=== PATIENT | male | born 1960 | race Caucasian/White ===

== ENCOUNTER 2016-07-26 03:37 | Inpatient (IN) | payer MEDICARE, MEDICAID ==
[2016-07-28] MEDS ORDERED: ZESTRIL DPS10 MG PO (13:50)
[2016-07-28] MEDS ORDERED: ASA CHILDREN'S81 MG PO (13:50)
[2016-07-28] MEDS ORDERED: GLUCOPHAGE-DPS500 MG PO (13:50)
[2016-07-28] MEDS ORDERED: BRILINTA90 MG PO (13:51)
[2016-07-28] MEDS ORDERED: LOPRESSOR DPS50 MG PO (13:51)
[2016-07-28] MEDS ORDERED: LIPITOR DPS10 MG PO (13:51)
== END 2016-07-27 13:29 | disposition home or self-care (01) | DRG 247 ==
DX: I21.19 ST elevation (STEMI) myocardial infarction involving other coronary artery of inferior wall (principal); I10 Essential (primary) hypertension; F32.9 Major depressive disorder, single episode, unspecified; E11.9 Type 2 diabetes mellitus without complications; E78.5 Hyperlipidemia, unspecified; Z87.828 Personal history of other (healed) physical injury and trauma

== ENCOUNTER → 2016-08-16 | Outpatient (CLI) | payer MEDICARE, MEDICAID ==
[~2016-08-16] MED LIST: ASA CHILDREN'S81 MG PO; BRILINTA90 MG PO; GLUCOPHAGE-DPS500 MG PO; LIPITOR DPS10 MG PO; LOPRESSOR DPS50 MG PO; ZESTRIL DPS10 MG PO
== END | disposition home or self-care (01) ==
LOC: EDT 14:11
DX: E11.9 Type 2 diabetes mellitus without complications (principal); Z71.3 Dietary counseling and surveillance